=== PATIENT | female | born 1955 | race Caucasian/White ===

== ENCOUNTER 2019-10-09 11:11 | Emergency (ER) | payer OTHER ==
[~2019-10-09] VITALS: Ht 157.5 cm; Wt 72.1 kg
[2019-10-09] MEDS ORDERED: HYDROcodone-ACET 10/325MG TAB PO ONE (12:30)
[2019-10-09] MEDS ORDERED: KETOROLAC TROMETH 30 MG/ML 1ML VIAL IV ONE (17:30)
[2019-10-09 17:42] VITALS: BP 158/68
== END 2019-10-09 18:04 | disposition home or self-care (01) ==
LOC: EDBD 11:11 → ER 11:11
DX: S93.402A Sprain of unspecified ligament of left ankle, initial encounter (principal); X58.XXXA Exposure to other specified factors, initial encounter; Y93.89 Activity, other specified; Y92.89 Other specified places as the place of occurrence of the external cause; Y99.8 Other external cause status
CPT/HCPCS: 29515; 73610; 73630; 96374; 99284; J1885